=== PATIENT | male | born 1960 | race Caucasian/White ===

== ENCOUNTER 2017-08-27 10:01 | Emergency (ER) | payer SELFPAY ==
[~2017-08-27] VITALS: Ht 157.5 cm; Wt 58.2 kg
[2017-08-27 10:10] VITALS: BP 133/69
[2017-08-27] MEDS ORDERED: DEXAMETHASONE 10 MG/ML VIAL IM ONE (10:30)
[2017-08-27] MEDS ORDERED: CLINDAMYCIN 600 MG/4 ML VIAL IM ONE (10:30)
[2017-08-27 11:48] VITALS: BP 121/73
== END 2017-08-27 11:47 | disposition home or self-care (01) ==
LOC: MED 10:01
DX: L53.9 Erythematous condition, unspecified (principal); R03.0 Elevated blood-pressure reading, without diagnosis of hypertension
CPT/HCPCS: 96372; 99284; J1100; J3490

== ENCOUNTER 2018-08-15 12:34 | Emergency (ER) | payer OTHER ==
[~2018-08-15] VITALS: Ht 165.1 cm; Wt 59.0 kg
[2018-08-15 12:45] VITALS: BP 128/75
--- NOTE | 2018-08-15 12:45 | NUR ---
PT AMBULATES TO BED 9
--- NOTE | 2018-08-15 13:00 | NUR ---
PATIENT IS A 58 Y/O MALE WHO PRESENTS TO THE ED C/O RASH. PT STATES THAT IT HAS BEEN GOING ON X2 MONTHS. NOTED RASH OVER BODY PRIMARILY IN L ARMPIT AREA, BUT REPORTS ALL OVER BODY. PT DENIES PAIN AT THIS TIME. PT DENIES CP, SOB, N/V/D. PT AWAKE AND ALERT, RR EVEN/UNLABORED. PT REPOSITIONED FOR COMFORT, BED IN LOWEST POSITION. ER MD DR. VALLEJO NOTIFIED. WILL CONITNUE TO MONITOR.
[2018-08-15] MEDS ORDERED: hydrOXYzine HCL 25 MG TAB PO ONE (14:35)
[2018-08-15] MEDS ORDERED: DEXAMETHASONE 10 MG/ML VIAL IM ONE (14:35)
[2018-08-15] MEDS ORDERED: diphenhydrAMINE 50 MG/ML VIAL IM ONE (14:35)
--- NOTE | 2018-08-15 15:05 | NUR ---
Patient discharged with v/s stable. Written and verbal after care instructions given and explained. Patient alert, oriented and verbalized understanding of instructions. Ambulatory with steady gait. All questions addressed prior to discharge. ID band removed. Patient advised to follow up with PMD. Rx of elimite and atarax given. Patient educated on indication of medication including possible reaction and side effects. Opportunity to ask questions provided and answered.
[2018-08-15 15:14] VITALS: BP 119/82
== END 2018-08-15 15:05 | disposition home or self-care (01) ==
LOC: MED 12:34
DX: B86 Scabies (principal)
CPT/HCPCS: 96372; 99283; J1100; J1200

== ENCOUNTER 2024-03-29 17:12 | Emergency (ER) | payer OTHER ==
[~2024-03-29] VITALS: Ht 157.5 cm; Wt 63.5 kg
[2024-03-29 17:19] VITALS: BP 145/82; PULSE 66; RESP 16; TEMP 97.1; O2SAT 97
[2024-03-29 18:09] VITALS: BP 138/75; PULSE 68; RESP 16; TEMP 97.1; O2SAT 97
[2024-03-29 19:00] LABS: APPEARANCE,URINE CLEAR (CLEAR); BILIRUBIN,URINE NEGATIVE (NEGATIVE); BLOOD, URINE NEGATIVE (NEGATIVE); COLOR,URINE YELLOW (YELLOW); LEUKOCYTE ESTERASE ,URINE NEGATIVE (NEGATIVE); NITRITE, URINE NEGATIVE (NEGATIVE); PROTEIN,URINE NEGATIVE (NEGATIVE); UGLUCOSE NEGATIVE (NEGATIVE); UROBILINOGEN,URINE 0.2 EU/dL (0.2 - 1)
[2024-03-29 19:08] LABS: BASOPHILS # (AUTO) 0.2 K/uL (0.00-0.22); BASOPHILS % (AUTO) 3.2 % (0.0-2.0); EOSINOPHILS # (AUTO) 0.5 K/uL (0-0.4); EOSINOPHILS % (AUTO) 7.8 % (0.0-4.0); HEMATOCRIT 45.1 % (36-52); HEMOGLOBIN 15.3 g/dL (12.0-18.0); LYMPHOCYTES # (AUTO) 2.1 K/uL (2.0-11.5); LYMPHOCYTES % (AUTO) 30.8 % (20.5-51.1); MEAN CORPUSCULAR HEMOGLOBIN 30 pg (27-31); MEAN CORPUSCULAR HGB CONC 34 g/dL (33-37); MEAN CORPUSCULAR VOLUME 89.2 fL (80-94); MONOCYTES # (AUTO) 0.2 K/uL (0.8-1.0); MONOCYTES % (AUTO) 2.9 % (1.7-9.3); NEUTROPHILS # (AUTO) 3.7 K/uL (1.8-7.7); NEUTROPHILS % (AUTO) 55.3 % (42.2-75.2); PLATELET COUNT (AUTO) 296 K/uL (140-450); RED BLOOD CELL COUNT(AUTO) 5.06 MIL/uL (4.20-6.10); RED CELL DISTRIBUTION WIDTH 13.8 % (11.6-13.7); WHITE BLOOD COUNT (AUTO) 6.7 K/uL (4.8-10.8)
[2024-03-29 19:21] LABS: ANION GAP 8.6 (8-16); CALCIUM 8.7 mg/dL (8.5-10.1); POTASSIUM 3.6 mmol/L (3.5-5.1)
[2024-03-29 19:22] LABS: ALBUMIN 3.4 g/dL (3.4-5.0); BILIRUBIN,DIRECT 0.1 mg/dL (0.0-0.3); TOTAL BILIRUBIN 0.2 mg/dL (0.0-1.0); TOTAL PROTEIN, SERUM 6.9 g/dL (6.4-8.2)
== END 2024-03-29 19:46 | disposition home or self-care (01) ==
LOC: MED 17:12
DX: R10.9 Unspecified abdominal pain (principal)
CPT/HCPCS: 36415; 80048; 80076; 81003; 83690; 85025; 99283